=== PATIENT | male | born 1970 | race American Indian/Alaskan Native ===

== ENCOUNTER 2017-10-09 13:48 | Emergency (ER) | payer MEDICAID ==
--- NOTE | 2017-10-09 19:19 | Emergency Department Report ---
ED General Adult HPI - General Chief complaint: Upper Respiratory Infection Stated complaint: NAUSEA/VOMITING Time Seen by Provider: 10/09/17 18:24 Source: patient Mode of arrival: Ambulatory Limitations: No Limitations - History of Present Illness Initial comments: This is a 46 y.o. male presents with esophageal burning while lying flat, cough , and increased saliva for 1 week. Denies chest pain, abdominal pain, SOB, wheezing, fever, and body aches. States he is fine while sitting up. He has tried changing diet but still experience cough and burning while lying flat. Onset/Timin -: week(s) Radiation: non-radiation Severity scale (0 -10): 8 Quality: burning (esophageal) Consistency: intermittent Improves with: other (sitting up) Worsens with: other (supine) Associated Symptoms: cough. denies: confusion, chest pain, diaphoresis, fever/ chills, headaches, loss of appetite, malaise, nausea/vomiting, rash, seizure, shortness of breath, syncope, weakness Treatments Prior to Arrival: none - Related Data Previous Rx's Medication Instructions Recorded Last Taken Type Omeprazole 40 mg PO DAILY #30 capsule. 10/09/17 Unknown Rx Allergies Allergy/AdvReac Type Severity Reaction Status Date / Time No Known Allergies Allergy Unverified 10/09/17 14:51 ED Review of Systems ROS: Stated complaint: NAUSEA/VOMITING Other details as noted in HPI Constitutional: see HPI. denies: chills, fever ENT: throat pain (burning while lying flat). denies: ear pain Respiratory: cough (for 1 week while lying flat). denies: orthopnea, shortness of breath, SOB with exertion, wheezing Cardiovascular: denies: chest pain, palpitations Gastrointestinal: denies: abdominal pain, nausea, diarrhea Neurological: denies: headache, weakness, paresthesias ED Past Medical Hx - Past Medical History Previous Medical History?: No Additional medical history: Schizophrenia - Surgical History Past Surgical History?: No - Social History Smoking Status: Never Smoker Substance Use Type: None - Medications Home Medications: Home Medications Medication Instructions Recorded Confirmed Last Taken Type Omeprazole 40 mg PO DAILY #30 capsule. 10/09/17 Unknown Rx ED Physical Exam - General Limitations: No Limitations General appearance: alert, in no apparent distress - ENT ENT exam: Present: normal exam, mucous membranes moist - Respiratory Respiratory exam: Present: normal lung sounds bilaterally. Absent: respiratory distress, wheezes, rales, rhonchi, stridor - Cardiovascular Cardiovascular Exam: Present: regular rate, normal rhythm. Absent: systolic murmur, diastolic murmur, rubs, gallop - GI/Abdominal GI/Abdominal exam: Present: soft, normal bowel sounds - Neurological Exam Neurological exam: Present: alert, oriented X3 ED Course Vital Signs 10/09/17 14:51 Temperature 97.8 F Pulse Rate 72 Respiratory 18 Rate Blood Pressure 112/76 O2 Sat by Pulse 99 Oximetry ED Medical Decision Making - Medical Decision Making This is a 46 y.o. male presents with esophageal burning while lying flat and cough for 1 week. Denies, SOB, weakness, chest pain, nausea, and vomiting. He Critical care attestation.: If time is entered above; I have spent that time in minutes in the direct care of this critically ill patient, excluding procedure time. ED Disposition Clinical Impression: GERD (gastroesophageal reflux disease) Qualifiers: Esophagitis presence: with esophagitis Qualified Code(s): K21.0 - Gastro- esophageal reflux disease with esophagitis Disposition: TO HOME OR SELFCARE Is pt being admited?: No Does the pt Need Aspirin: No Condition: Stable Instructions: Gastroesophageal Reflux Disease (ED) Additional Instructions: Follow up with gastroenteritis. Drink 8 glasses of non-caffeinated fluids daily. Avoid caffeine, spicy foods, mild products, and chocolate. Avoid tobacco or smoking. Sit up for 2-3 hours after eating. Elevated head of bead for 30 degrees. Seek medical attention if fever, chest pain, headache, or wheezing. Prescriptions: Omeprazole 40 mg PO DAILY #30 capsule.dr Referrals: MIKAELA CARRANZA JR, MD [Primary Care Provider] - 3-5 Days JAVY BLANCO MD [Staff Physician] - 3-5 Days Time of Disposition: 19:31 Print Language: BENINESE
[2017-10-09 19:42] VITALS: BP 130/89
== END 2017-10-09 19:42 | disposition home or self-care (01) ==
LOC: ED 13:48
DX: K21.0 Gastro-esophageal reflux disease with esophagitis (principal); F20.9 Schizophrenia, unspecified
CPT/HCPCS: 99282